=== PATIENT | male | born 1940 | race Caucasian/White ===

== ENCOUNTER 2017-11-09 07:44 | Day surgery (SDC) | payer MEDICARE, BC ==
[2017-11-09] VITALS (7 sets, daily range): BP systolic 138–166; BP diastolic 77–110
[2017-11-09] MEDS ORDERED: LIDOcaine 1% 30ml preserv. free vial SQ STA (07:52)
[2017-11-09] MEDS ORDERED: ALBU8HFA PO (08:13)
[2017-11-09] MEDS ORDERED: PRAV10TA39 PO (08:13)
[2017-11-09] MEDS ORDERED: MONT10TA24 PO (08:13)
[2017-11-09] MEDS ORDERED: SENN-161 PO (08:13)
[2017-11-09] MEDS ORDERED: TERA2CAP4 PO (08:13)
[2017-11-09] MEDS ORDERED: OXYB5TAB11 PO (08:13)
[2017-11-09] MEDS ORDERED: LEVO75TA PO (08:13)
[2017-11-09] MEDS ORDERED: LIDOcaine 1%/PF (10mg/ml) 5ml vial SQ STA (08:23)
[2017-11-09 10:14] LABS: TOTAL PROTEIN,BODY FLUID 3.2 G/DL
== END 2017-11-09 09:25 | disposition home or self-care (01) ==
LOC: SSTAY O 07:44
PROVIDERS: ATTEND Radiology Diagnostic Radiology
DX: J90 Pleural effusion, not elsewhere classified (principal); E03.9 Hypothyroidism, unspecified; E78.5 Hyperlipidemia, unspecified; I10 Essential (primary) hypertension; Z85.46 Personal history of malignant neoplasm of prostate; Z90.79 Acquired absence of other genital organ(s); Z90.89 Acquired absence of other organs; Z87.891 Personal history of nicotine dependence; Z98.890 Other specified postprocedural states; Z79.899 Other long term (current) drug therapy
CPT/HCPCS: 32555; 71045; 83615; 84157; J2001; J3490